=== PATIENT | female | born 1950 | race Caucasian/White ===

== ENCOUNTER 2017-10-01 03:56 | Inpatient (IN) | payer MEDICARE, BC ==
[2017-10-01] MEDS ORDERED: Iopamidol 755 MG/ML 200 ML Multipack Bottle IVPUSH STA (04:37)
[2017-10-01 04:45] LABS: CHLORIDE,CL 109 mmol/L (98-107); SODIUM,NA 142 mmol/L (136-145)
--- NOTE | 2017-10-01 05:30 | EDM.PDOC ---
ED HPI GENERAL MEDICAL PROBLEM - General Chief Complaint: Gastrointestinal Problem Stated Complaint: AMBULANCE Time Seen by Provider: 10/01/17 05:26 - History of Present Illness INITIAL COMMENTS - FREE TEXT/NARRATIVE: HISTORY AND PHYSICAL: History of present illness: Patient is a 67-year-old female presents with her rectal bleeding states she had 2 episodes tonight that were more significant she was diagnosed approximately 1 month prior with rectal CA this was felt to be very localized and she is awaiting her oncology appointment. She states she had a CAT scan upper and lower GI in addition a biopsy of which she does not know specific results. Patient states the episode tonight was with associated generalized weakness and diaphoresis while she was sitting on a toilet. There was no chest pain there's been no abdominal pain. He feels much improved now and does describe the episode as significant Review of systems: As per history of present illness and below otherwise all systems reviewed and negative. Past medical history: As per history of present illness and as reviewed below otherwise noncontributory. Surgical history: As per history of present illness and as reviewed below otherwise noncontributory. Social history: No reported history of drug or alcohol abuse. Family history: As per history of present illness and as reviewed below otherwise noncontributory. Physical exam: HEENT: Atraumatic, normocephalic, pupils reactive, negative for conjunctival pallor or scleral icterus, mucous membranes moist, throat clear, neck supple, nontender, trachea midline. Lungs: Clear to auscultation, breath sounds equal bilaterally, chest nontender. Heart: S1S2, regular, negative for clicks, rubs, or JVD. Abdomen: Soft, nondistended, nontender. Negative for masses or hepatosplenomegaly. Negative for costovertebral tenderness. Pelvis: Stable nontender. Genitourinary: Deferred. Rectal: Deferred. Extremities: Atraumatic, negative for cords or calf pain. Neurovascular unremarkable. Neuro: Awake, alert, oriented. Cranial nerves II through XII unremarkable. Cerebellum unremarkable. Motor and sensory unremarkable throughout. Exam nonfocal. Diagnostics: CBC CMP PT/INR chest x-ray EKG CT abdomen and pelvis Therapeutics: IV O2 monitor Impression: #1 rectal carcinoma with rectal bleeding Definitive disposition and diagnosis as appropriate pending reevaluation and review of above. - Related Data Allergies Allergy/AdvReac Type Severity Reaction Status Date / Time Sulfa (Sulfonamide Allergy Nausea and Verified 10/01/17 04:02 Antibiotics) Vomiting Home Meds: Home Meds . [No Known Home Meds] 10/01/17 [History] Past Medical History Oncologic (Cancer) History: Reports: Other (See Below) Other Oncologic History: Rectal cancer - Past Surgical History Musculoskeletal Surgical History: Reports: Other (See Below) Other Musculoskeletal Surgeries/Procedures:: L hip repair, includes a celso Social & Family History - Tobacco Use Smoking Status *Q: Former Smoker Used Tobacco, but Quit: Yes Month/Year Tobacco Last Used: 's - Caffeine Use Caffeine Use: Reports: Coffee, Tea - Recreational Drug Use Recreational Drug Use: No ED ROS GENERAL - Review of Systems Review Of Systems: ROS reveals no pertinent complaints other than HPI. ED EXAM, GENERAL - Physical Exam Exam: See Below (See dictation) Course - Vital Signs Last Recorded V/S: Last Vital Signs Temp 36.3 C 10/01/17 03:58 Pulse 67 10/01/17 03:58 Resp 12 10/01/17 03:58 BP 97/59 L 10/01/17 03:58 Pulse Ox 97 10/01/17 03:58 - Orders/Labs/Meds Orders: Active Orders 24 hr Category Date Time Status EKG 12 Lead [EKG Documentation Completion] [RC] STAT Care 10/01/17 04:10 Active Abdomen Pelvis w Cont [CT] Stat Exams 10/01/17 04:11 Ordered Chest 1V Frontal [CR] Stat Exams 10/01/17 04:12 Ordered TYPE AND SCREEN [BBK] Stat Lab 10/01/17 04:58 Received Labs: Laboratory Tests 10/01/17 10/01/17 10/01/17 Range/Units 04:20 04:20 04:20 WBC 6.01 (4.0-11.0) K/uL RBC 3.20 L (4.30-5.90) M/uL Hgb 9.3 L (12.0-16.0) g/dL Hct 28.1 L (36.0-46.0) % MCV 87.8 (80.0-98.0) fL MCH 29.1 (27.0-32.0) pg MCHC 33.1 (31.0-37.0) g/dL RDW Std Deviation 44.5 (28.0-62.0) fl RDW Coeff of Marj 14 (11.0-15.0) % Plt Count 200 (150-400) K/uL MPV 9.40 (7.40-12.00) fL Neut % (Auto) 66.7 (48.0-80.0) % Lymph % (Auto) 24.5 (16.0-40.0) % [place] % (Auto) 6.8 (0.0-15.0) % Eos % (Auto) 1.5 (0.0-7.0) % Baso % (Auto) 0.5 (0.0-1.5) % Neut # (Auto) 4.0 (1.4-5.7) K/uL Lymph # (Auto) 1.5 (0.6-2.4) K/uL [place] # (Auto) 0.4 (0.0-0.8) K/uL Eos # (Auto) 0.1 (0.0-0.7) K/uL Baso # (Auto) 0.0 (0.0-0.1) K/uL Nucleated RBC % 0.0 /100WBC Nucleated RBCs # 0 K/uL INR 1.03 Sodium 142 (136-145) mmol/L Potassium 3.8 (3.5-5.1) mmol/L Chloride 109 H (98-107) mmol/L Carbon Dioxide 24.1 (21.0-32.0) mmol/L BUN 16 (7.0-18.0) mg/dL Creatinine 0.7 (0.6-1.0) mg/dL Est Cr Clr Drug Dosing 65.40 mL/min Estimated GFR (MDRD) > 60.0 ml/min Glucose 166 H (74-106) mg/dL Calcium 8.0 L (8.5-10.1) mg/dL Total Bilirubin 0.6 (0.2-1.0) mg/dL AST 13 L (15-37) IU/L ALT 15 (14-63) IU/L Alkaline Phosphatase 46 (46-116) U/L Total Protein 5.4 L (6.4-8.2) g/dL Albumin 3.0 L (3.4-5.0) g/dL Globulin 2.4 (2.0-3.5) g/dL Albumin/Globulin Ratio 1.3 (1.3-2.8) Meds: Medications Discontinued Medications Generic Name Dose Route Start Last Admin Trade Name Abilioq PRN Reason Stop Dose Admin Iopamidol 85 ml 10/01/17 04:37 10/01/17 04:39 Isovue Multipack-370 (76%) IVPUSH 10/01/17 04:38 85 ml ONETIME STA Administration Departure - Departure Time of Disposition: 05:33 Disposition: Admitted As Inpatient 67 Condition: Good Clinical Impression: Rectal carcinoma, Rectal bleeding - Discharge Information Referrals: PCP,None [Primary Care Provider] - Forms: ED Department Discharge - My Orders Last 24 Hours: My Active Orders 10/01/17 04:10 EKG 12 Lead [EKG Documentation Completion] [RC] STAT 10/01/17 04:11 Abdomen Pelvis w Cont [CT] Stat 10/01/17 04:12 Chest 1V Frontal [CR] Stat 10/01/17 04:58 TYPE AND SCREEN [BBK] Stat - Assessment/Plan Last 24 Hours: My Active Orders 10/01/17 04:10 EKG 12 Lead [EKG Documentation Completion] [RC] STAT 10/01/17 04:11 Abdomen Pelvis w Cont [CT] Stat 10/01/17 04:12 Chest 1V Frontal [CR] Stat 10/01/17 04:58 TYPE AND SCREEN [BBK] Stat
[2017-10-01] MEDS ORDERED: Sodium Chloride 0.9% 1,000 ML IV ONE (05:33)
--- NOTE | 2017-10-01 06:47 | PCM.HP ---
H&P History of Present Illness - General Date of Service: 10/01/17 Admit Problem/Dx: Admission Diagnosis/Problem Admission Diagnosis/Problem Gastrointestinal hemorrhage Source of Information: Patient History Limitations: Reports: No Limitations - History of Present Illness Initial Comments - Free Text/Narative: 67-year-old female presenting to the emergency department via EMS with chief complaint of bright red blood per rectum 2 episodes with past medical history of newly diagnosed rectal carcinoma. Patient states that she awoke around 3 AM on day of admission and went to the bathroom where she noticed some watery bloody discharge. She went to lay down afterwards but felt like she needed to use the bathroom again and once again noticed this watery bloody discharge and felt some immediate weakness, lightheadedness, and diaphoresis. Secondary to her lightheadedness and weakness her daughter called EMS for further evaluation. Patient denies any associated chest pain, shortness of breath, syncopal episodes, or focal neurologic episodes. She does have a recent diagnosis of rectal carcinoma and has been seeing providers in [place] for this. She is currently visiting from [place] and staying with her daughter who lives here in [place]. Patient did have a recent colonoscopy. She has no other significant medical history and takes no other medications other than a multivitamin. Patient does admit to having an allergy to sulfa and Tegaderm. She is a former smoker but quit 20 years ago with a 10 pack smoking history. Patient merited for acute GI bleed. denies pain Pain Score (Numeric/FACES): 0 - Related Data Allergies/Adverse Reactions: Allergies Allergy/AdvReac Type Severity Reaction Status Date / Time Sulfa (Sulfonamide Allergy Nausea and Verified 10/01/17 04:02 Antibiotics) Vomiting Home Medications: Home Meds . [No Known Home Meds] 10/01/17 [History] Past Medical History Oncologic (Cancer) History: Reports: Other (See Below) Other Oncologic History: Rectal cancer - Past Surgical History Musculoskeletal Surgical History: Reports: Other (See Below) Other Musculoskeletal Surgeries/Procedures:: L hip repair, includes a celso Social & Family History - Tobacco Use Smoking Status *Q: Never Smoker Used Tobacco, but Quit: Yes Month/Year Tobacco Last Used: 90's Second Hand Smoke Exposure: No - Caffeine Use Caffeine Use: Reports: Coffee, Tea - Alcohol Use Days Per Week of Alcohol Use: 1 Number of Drinks Per Day: 1 Total Drinks Per Week: 1 - Recreational Drug Use Recreational Drug Use: No H&P Review of Systems - Review of Systems: Review Of Systems: See Below General: Reports: Weakness, Fatigue. Denies: Fever, Chills, Malaise HEENT: Denies: Headaches, Sore Throat Pulmonary: Denies: Shortness of Breath, Pleuritic Chest Pain, Cough, Sputum Cardiovascular: Reports: Lightheadedness. Denies: Chest Pain, Palpitations, Blood Pressure Problem Gastrointestinal: Reports: Bloody Stool, Diarrhea. Denies: Abdominal Pain, Black Stool, Nausea, Vomiting Genitourinary: Reports: Hematuria. Denies: Dysuria, Burning, Pain Musculoskeletal: Denies: Neck Pain, Leg Pain Psychiatric: Denies: Confusion Neurological: Denies: Confusion, Dizziness, Headache Hematologic/Lymphatic: Denies: Anemia Immunologic: Denies: Anaphylaxis Exam - Exam Exam: See Below - Vital Signs Vital Signs: Last Vital Signs Temp 98.4 F 10/01/17 05:44 Pulse 73 10/01/17 05:44 Resp 18 10/01/17 05:44 BP 115/62 10/01/17 05:44 Pulse Ox 97 10/01/17 05:44 Weight: 69.853 kg - Exam Quality Assessment: DVT Prophylaxis General: Alert, Oriented, Cooperative HEENT: Conjunctiva Clear, EACs Clear, EOMI, Hearing Intact, Mucosa Moist & [place] , Nares Patent, Normal Nasal Septum, Posterior Pharynx Clear, PERRLA Neck: Supple, Trachea Midline, 2 Lungs: Clear to Auscultation, Normal Respiratory Effort Cardiovascular: Regular Rate, Regular Rhythm, Normal S1, Normal S2 GI/Abdominal Exam: Normal Bowel Sounds, Soft, Non-Tender, No Organomegaly, No Distention (Female) Exam: Deferred Rectal (Female) Exam: Deferred Back Exam: Normal Inspection Extremities: Normal Inspection, Non-Tender, No Pedal Edema, Normal Capillary Refill Peripheral Pulses: 2+: Radial (L), Radial (R), Posterior Tibial (L), Posterior Tibial (R), Dorsalis Pedis (L), Dorsalis Pedis (R) Skin: Warm, Dry, Intact Neurological: Cranial Nerves Intact Neuro Extensive - Mental Status: Alert, Oriented x3, Normal Mood/Affect, Normal Cognition Neuro Extensive - Motor, Sensory, Reflexes: CN II-XII Intact Psychiatric: Alert, Normal Affect, Normal Mood - Patient Data Result Diagrams: 10/01/17 04:20 10/01/17 04:20 *Q Meaningful Use (ADM) - VTE *Q VTE Criteria *Q: - Stroke *Q Stroke Criteria *Q: - AMI *Q AMI Criteria *Q: - Problem List (1) Acute GI bleeding SNOMED Code(s): 38896773 ICD Code: K92.2 - GASTROINTESTINAL HEMORRHAGE, UNSPECIFIED Status: Acute Priority: High Current Visit: Yes (2) Rectal carcinoma SNOMED Code(s): 675659933 ICD Code: C20 - MALIGNANT NEOPLASM OF RECTUM Status: Chronic Priority: High Current Visit: Yes Problem List Initiated/Reviewed/Updated: Yes Assessment/Plan Comment:: 67-year-old female admitted 10/01/17 for acute GI hemorrhage with past medical history of newly diagnosed rectal carcinoma. Acute GI hemorrhage: Patient has been made nothing by mouth, will IV fluid resuscitate and monitor hemoglobin levels. Have consulted surgery. Will observe and if hemoglobin is stable patient may be discharged with follow-up with her primary care physician as well as surgeon in [place]. Rectal carcinoma: Currently being followed by providers in [facility]. CT of the abdomen showed wall thickening of the hepatic flexure of the colon possibly representing a colitis. There is also right iliac chain and right inguinal adenopathy as well as prominent pelvic veins and left ovarian vein suggestive of pelvic venous congestion. VTE: SCD no pharm secondary to acute bleed. Dispo: 1-2 days pending.
[2017-10-01] MEDS ORDERED: Morphine 2 MG/ML Syringe IVPUSH PRN (07:00)
[2017-10-01] MEDS ORDERED: Ondansetron 4 MG/2 ML SDV IVPUSH PRN (07:00)
[2017-10-01] MEDS: Lactated Ringers 1,000 ML IV SCH ×2 (09:23→17:22)
--- NOTE | 2017-10-01 11:29 | PCM.CONS ---
<Tomy Kim - Last Filed: 10/01/17 11:22> H&P History of Present Illness - General Date of Service: 10/01/17 Admit Problem/Dx: Admission Diagnosis/Problem Admission Diagnosis/Problem Gastrointestinal hemorrhage Source of Information: Patient, Family History Limitations: Reports: No Limitations - History of Present Illness Initial Comments - Free Text/Narative: 67 y/o female admitted for hematochezia. She had a couple episodes of hematochezia about 1 month ago and was admitted at [place], [place]. Colonoscopy at that time revealed a rectal cancer. She was subsequently discharged and has an appointment with oncology in [place], [place] this coming Monday. Early this morning , around 0300, she awoke and went to bathroom, and had 3 BM within about 30 minutes, all of which were combinations of clot and fresh red blood. She felt weak and diaphoretic and called 911 and was subsequently admitted from the ED in [place]. She did not have any rectal bleeding between her admission in [place] and this current encounter. She states she has had no further hematochezia since arrival here, but did notice a small amount of blood on her pad. She feels better at this time. denies pain Pain Score (Numeric/FACES): 0 - Related Data Allergies/Adverse Reactions: Allergies Allergy/AdvReac Type Severity Reaction Status Date / Time Sulfa (Sulfonamide Allergy Nausea and Verified 10/01/17 04:02 Antibiotics) Vomiting Home Medications: Home Meds . [No Known Home Meds] 10/01/17 [History] Past Medical History - Past Health History Medical/Surgical History: Denies Medical/Surgical History Oncologic (Cancer) History: Reports: Other (See Below) Other Oncologic History: Rectal cancer - Past Surgical History Musculoskeletal Surgical History: Reports: Other (See Below) Other Musculoskeletal Surgeries/Procedures:: L hip repair, includes a celso Social & Family History - Tobacco Use Smoking Status *Q: Former Smoker Used Tobacco, but Quit: Yes Month/Year Tobacco Last Used: 90's Second Hand Smoke Exposure: No - Caffeine Use Caffeine Use: Reports: Coffee, Tea - Alcohol Use Days Per Week of Alcohol Use: 1 Number of Drinks Per Day: 1 Total Drinks Per Week: 1 - Recreational Drug Use Recreational Drug Use: No H&P Review of Systems - Review of Systems: Review Of Systems: See Below General: Reports: Weakness, Fatigue, Diaphoresis. Denies: Decreased Appetite, Weight Loss HEENT: Reports: No Symptoms Pulmonary: Reports: No Symptoms Cardiovascular: Reports: No Symptoms Gastrointestinal: Reports: Bloody Stool, Hematochezia. Denies: Abdominal Pain, Nausea, Vomiting Genitourinary: Reports: No Symptoms Musculoskeletal: Reports: No Symptoms Skin: Reports: No Symptoms Psychiatric: Reports: No Symptoms Neurological: Reports: No Symptoms Hematologic/Lymphatic: Reports: No Symptoms Immunologic: Reports: No Symptoms Exam - Exam Exam: See Below - Vital Signs Vital Signs: Last Vital Signs Temp 37.2 C 10/01/17 07:00 Pulse 83 10/01/17 07:00 Resp 16 10/01/17 07:00 BP 98/54 L 10/01/17 07:00 Pulse Ox 95 10/01/17 07:00 Weight: 154 lb - Exam General: Alert, Oriented, Cooperative HEENT: EOMI Neck: Supple Lungs: Clear to Auscultation, Normal Respiratory Effort Cardiovascular: Regular Rate, Regular Rhythm GI/Abdominal Exam: Soft, Non-Tender, No Distention (Female) Exam: Deferred Rectal (Female) Exam: Deferred Extremities: Normal Inspection Skin: Warm, Dry Neurological: Cranial Nerves Intact Neuro Extensive - Mental Status: Alert, Oriented x3, Normal Mood/Affect, Normal Cognition, Memory Intact Psychiatric: Alert, Normal Affect, Normal Mood - Patient Data Result Diagrams: 10/01/17 04:20 10/01/17 04:20 Consult PN Assessment/Plan (1) Rectal bleeding SNOMED Code(s): 27847329 Code(s): K62.5 - HEMORRHAGE OF ANUS AND RECTUM Current Visit: Yes (2) Rectal carcinoma SNOMED Code(s): 142435436 Code(s): C20 - MALIGNANT NEOPLASM OF RECTUM Current Visit: Yes Problem List Initiated/Reviewed/Updated: Yes Plan: Patient was interviewed and examined with Dr. Alexander. Her Hgb is 9.3, though we don't have any prior lab studies for comparison. She is hemodynamically and has not had any further bloody stools since arrival. The bleeding likely originated from the rectal cancer, but has since stopped and she remains stable. No indication for surgical or endoscopic intervention at this time. Continue supportive cares, transfuse PRN for hemodynamically significant bleeding, and have her keep her appointment with oncology on Monday in [place]. Recommend regular diet as tolerated. <BenjaminDiego L - Last Filed: 10/01/17 12:18> H&P History of Present Illness - General Admit Problem/Dx: Admission Diagnosis/Problem Admission Diagnosis/Problem Gastrointestinal hemorrhage Exam - Vital Signs Vital Signs: Last Vital Signs Temp 99.0 F 10/01/17 07:00 Pulse 83 10/01/17 07:00 Resp 16 10/01/17 07:00 BP 98/54 L 10/01/17 07:00 Pulse Ox 95 10/01/17 07:00 - Patient Data Result Diagrams: 10/01/17 04:20 10/01/17 04:20 Consult PN Assessment/Plan Plan: Patient seen and examined with Dr. Kim. I agree with his assessment and plan.
[2017-10-02] MEDS: Lactated Ringers 1,000 ML IV SCH ×2 (01:29→09:52)
[2017-10-02 06:35] LABS: CHLORIDE,CL 110 mmol/L (98-107); SODIUM,NA 144 mmol/L (136-145)
--- NOTE | 2017-10-02 16:29 | CT ---
EXAM DATE: 10/01/17 PATIENT'S AGE: 67 Patient: SRI PINA Facility: [place], [place] Site . Site : 1950 Study: CT Abdomen/Pelvis [id number]/18/2018 5:43:52 AM Ordering Physician: Doctor Matt Final Report: INDICATION: Bloody stools with abdominal pain and weakness TECHNIQUE: CT abdomen and pelvis acquired with 85 cc Isovue 370 IV contrast. COMPARISON: None FINDINGS: Lower chest: Unremarkable. Liver: There are a few subcentimeter hypodensities, too small to accurately characterize. Spleen: Unremarkable. Pancreas: Unremarkable. Gallbladder and bile ducts: Unremarkable. Adrenal glands: Unremarkable. Kidneys: Unremarkable. GI tract: Moderate amount of stool in the colon. There is some wall thickening involving the hepatic flexure. No pericolonic fat stranding, free air, or free fluid. The appendix is normal. Vascular structures: Diffuse atherosclerotic disease. Lymph nodes: There is a 2.2 cm right inguinal lymph node which appears partially necrotic. There is a 1.4 cm right iliac chain lymph node on image 90 series 201. Miscellaneous: Unremarkable. No free air or significant free fluid. Pelvic Organs: Prominent left pelvic veins and the left ovarian vein noted. Bones: Internal fixation hardware in the proximal left femur. IMPRESSION: 1. Wall thickening of the hepatic flexure of the colon may represent colitis. Recommend colonoscopy after acute illness has resolved. 2. Moderate amount of stool throughout the colon. 3. Right iliac chain and right inguinal adenopathy. Correlation with prior CT and/or surgical consultation recommended. 4. Prominent pelvic veins and left ovarian vein can be seen with pelvic venous congestion syndrome. Please note that all CT scans at this facility use dose modulation, iterative reconstruction, and/or weight-based dosing when appropriate to reduce radiation dose to as low as reasonably achievable. Dictated by Rosa Maria Hemphill MD @ Oct 01 2017 6:20AM (Electronic Signature) Report Signed by Proxy. RAGINI
--- NOTE | 2017-10-02 16:30 | CR ---
EXAM DATE: 10/01/17 PATIENT'S AGE: 67 Patient: SRI PINA Facility: [place], [place] Site . Site : 1950 Study: XRay Chest [id number]/18/2018 5:59:25 AM Ordering Physician: Colin Atkinson Final Report: Indication: Pain, shortness of breath Technique: Chest 1 view Comparison: None Findings/Impression: Cardiovascular and mediastinum: Heart size and vasculature are normal in caliber and appearance. Mediastinum is within normal limits. Lungs and pleural space: Lungs are clear. No sign of infiltrate or mass. No sign of pleural effusion. No pneumothorax. Bones and soft tissues: No significant findings. Dictated by Rosa Maria Hemphill MD @ Oct 01 2017 6:28AM (Electronic Signature) Report Signed by Proxy. RAGINI
--- NOTE | 2017-10-03 09:10 | PCM.DCSUM1 ---
Discharge Summary - Discharge Data Discharge Date: 10/02/17 Discharge Disposition: Home, Self-Care 01 Condition: Fair - Patient Summary/Data Consults: Consultations 10/01/17 11:12 Consult to Physician [CONS] Routine - Discharge Plan Prescriptions/Med Rec: Magnesium Gluconate [Mag-G] 27 mg PO DAILY 30 Days #30 tablet Home Medications: Home Meds Magnesium Gluconate [Mag-G] 27 mg PO DAILY 30 Days #30 tablet 10/02/17 [Rx] Patient Handouts: Psyllium granules or powder for solution, Magnesium Salts tablets, extended-release - Patient Data Vitals - Most Recent: Last Vital Signs Temp 36.9 C 10/02/17 08:00 Pulse 80 10/02/17 08:00 Resp 16 10/02/17 08:00 BP 114/58 L 10/02/17 08:00 Pulse Ox 97 10/02/17 08:00 Weight - Most Recent: 69.853 kg JOSE CARLOS Results - Last 24 hrs: Microbiology 10/01/17 11:56 Urine Culture - Final Urine, Clean Catch MIXED CYNTHIA >100,000 CFU/ML Med Orders - Current: Current Medications Discontinued Medications Sodium Chloride (Normal Saline) 1,000 mls @ 999 mls/hr IV .BOLUS ONE Stop: 10/01/17 06:33 Last Admin: 10/01/17 05:43 Dose: 999 mls/hr Lactated Ringer's (Ringers, Lactated) 1,000 mls @ 125 mls/hr IV ASDIRECTED ANIVAL Last Admin: 10/02/17 09:52 Dose: 125 mls/hr Iopamidol (Isovue Multipack-370 (76%)) 85 ml IVPUSH ONETIME STA Stop: 10/01/17 04:38 Last Admin: 10/01/17 04:39 Dose: 85 ml Morphine Sulfate (Morphine) 2 mg IVPUSH Q2H PRN PRN Reason: Pain (severe 7-10) Ondansetron HCl (Zofran) 4 mg IVPUSH Q4H PRN PRN Reason: Nausea *Q Meaningful Use (DIS) - VTE *Q VTE Criteria *Q: - Stroke *Q Stroke Criteria *Q: - AMI *Q AMI Criteria *Q:
== END 2017-10-02 12:30 | disposition home or self-care (01) | DRG 378 ==
LOC: MW.ED 03:56 → MW.MS 05:38 → UNDODISIN 10-02 12:30
PROVIDERS: ADMIT Family Medicine; ATTEND Family Medicine
DX: K62.5 Hemorrhage of anus and rectum (principal); K92.2 Gastrointestinal hemorrhage, unspecified; Z88.2 Allergy status to sulfonamides; C20 Malignant neoplasm of rectum; Z87.891 Personal history of nicotine dependence
CPT/HCPCS: 36415; 71045; 74177; 80053; 85025; 85610; 86850; 86900; 86901; 93005; 99285; Q9967; 81001; 82272; 83735; 85027; 87086; 99283; J7040; J7120